=== PATIENT | female | born 1970 ===

== ENCOUNTER → 2020-10-02 | Outpatient (REF) ==
--- NOTE | 2020-10-02 20:48 | REP ---
INDICATION: PAIN COMPARISON: None. TECHNIQUE: AP, lateral, coned-down views of the lumbar spine. FINDINGS: Frontal radiograph demonstrates chronic dextroconvex scoliosis. Lordosis maintained on lateral radiograph. Endplate sclerosis, disc space narrowing and facet hypertrophy at L5-S1. Remainder of the examination is relatively age-appropriate. IMPRESSION: 1. No acute fracture / compression injury or subluxation. 2. Focal degenerative changes at L5-S1 and chronic dextroconvex scoliosis. <Electronically signed by Aaron Cantor > 10/02/20 [id number]
== END ==
LOC: M PLALAB 15:07
PROVIDERS: ATTEND Internal Medicine
DX: M51.36 Other intervertebral disc degeneration, lumbar region (principal); M41.9 Scoliosis, unspecified